=== PATIENT | male | born 1955 | race Caucasian/White ===

== ENCOUNTER → 2022-02-12 | Outpatient (CLI) | payer MEDICARE, OTHER ==
--- NOTE | 2022-02-13 11:43 | RAD ---
INDICATION: Right leg edema COMPARISON: None. TECHNIQUE: Grayscale, color and doppler ultrasound images were obtained of the right lower extremity venous vasculature. RIGHT: Thrombus is identified within a portion of the right distal superficial femoral vein as well as popli teal vein. Calf veins are not seen secondary to overlying structures obscuring. There is also a throm bus seen at the lesser saphenous vein near saphenofemoral junction. IMPRESSION: * Right leg deep vein thrombosis is identified. Report called to the ordering provider's office at 1 1:19 AM on date of exam. * Edema of soft tissues. Electronically signed by: Jhon Martinez MD (02/12/2022 11:24 AM) [id number]
== END ==
LOC: US 10:36
PROVIDERS: ATTEND Internal Medicine
DX: I82.401 Acute embolism and thrombosis of unspecified deep veins of right lower extremity (principal); M79.89 Other specified soft tissue disorders
CPT/HCPCS: 93971